=== PATIENT | female | born 1940 | race Caucasian/White ===

== ENCOUNTER 2018-08-30 08:54 | Outpatient (CLI) | payer MEDICARE ==
--- NOTE | 2018-08-30 11:15 | MRI ---
MRI LUMBAR SPINE: Date: 08-30-18 History: M54.16 - history of radiculopathy. Patient with history of back pain. Technique: Multiplanar, multisequence noncontrast enhanced MRI images were obtained of the lumbar spi ne. FINDINGS: For the purposes of this dictation, the last freely mobile vertebral body will be considered to be th e L5 vertebral body. All other vertebral bodies are numbered according to this. The patient has S-shaped levoscoliosis at the L1 level and some dextroscoliosis of the L4-5 level. T12-L1: Disc desiccation is seen. There is moderate right sided T12-L1 neural foraminal narrowing. Th e left neural foramen is patent. L1-2: Disc desiccation is seen. There is irregularity involving the inferior endplate of L1 and super ior endplate of L2. There is moderate to severe right sided neural foraminal narrowing. The left neur al foramen is patent. There is disc space height loss seen at L1-2. There is mild right L1-2 lateral recess stenosis. The left lateral recess is patent. Central canal is also patent. L2-3: Disc desiccation is seen. There is a broad based disc bulge with mild facet hypertrophy resulti ng in moderate left L2-3 lateral recess stenosis. The right neural foramen and lateral recess are pat ent. Some moderate left L2-3 neural foraminal narrowing also seen. L3-4: Disc desiccation is seen. There is a broad based disc bulge with bilateral facet hypertrophy. T here is moderate left L3-4 lateral recess stenosis due to the facet hypertrophy. There is no signific ant evidence of right sided neural foraminal narrowing. There is mild to moderate left sided L3-4 megan ral foraminal narrowing seen. L4-5: There is grade I anterolisthesis of L4 on L5. There is disc desiccation. There is a broad based disc bulge seen. There is bilateral facet hypertrophy seen. This results in moderate bilateral L4-5 lateral recess stenosis. Mild bilateral neural foraminal narrowing is seen due to the anterolisthesis as well as the facet hypertrophy at L4-5. L5-S1: There is disc desiccation seen. There is a broad based central disc bulge. There is bilateral facet hypertrophy, severe on the left and moderate on the right. This results in moderate left sided neural foraminal narrowing. The right neural foramen is patent. The sacrum is unremarkable. IMPRESSION: 1. Multilevel scoliotic changes with neural foraminal narrowing as described above. There is grade I anterolisthesis of L4 on L5. POS: [facility]
== END 2018-08-30 08:55 | disposition home or self-care (01) ==
LOC: BICMRI 08:54
PROVIDERS: ATTEND Neurological Surgery
DX: M54.16 Radiculopathy, lumbar region (principal); M43.16 Spondylolisthesis, lumbar region; M99.83 Other biomechanical lesions of lumbar region; M41.9 Scoliosis, unspecified
CPT/HCPCS: 72148

== ENCOUNTER 2022-11-17 14:55 | Emergency (ER) | payer OTHER, MEDICARE ==
[2022-11-17] MEDS ORDERED: Bacitracin 1 PK ONE (16:47)
== END 2022-11-17 16:55 | disposition home or self-care (01) ==
LOC: ERS 14:55
DX: S09.90XA Unspecified injury of head, initial encounter (principal); W01.0XXA Fall on same level from slipping, tripping and stumbling without subsequent striking against object, initial encounter
CPT/HCPCS: 70450; 72125